=== PATIENT | male | born 1995 | race Two or more races ===

== ENCOUNTER 2017-09-08 14:14 | Emergency (ER) | payer OTHER ==
[~2017-09-08] VITALS: Ht 175.3 cm; Wt 61.2 kg
[2017-09-08] MEDS ORDERED: NKM (14:21)
[2017-09-08 14:28] VITALS: BP 119/58
[2017-09-08] MEDS ORDERED: Acetaminophen 500mg (ES) tab ORAL ONE (14:30)
[2017-09-08] MEDS ORDERED: Bacitracin Oint UD TOPIC ONE (14:30)
[2017-09-08] MEDS ORDERED: Tetanus/Diptheria/Pertussis Vaccine 0.5ml Syr IM ONE (14:30)
[2017-09-08] MEDS ORDERED: BACITRACIN-P28.35 GM TP (14:43)
--- NOTE | 2017-09-08 14:43 | Emergency Room Report ---
History of Present Illness General Chief Complaint: Laceration Source: Patient Present Illness HPI 22 yo male patient presents to ER for laceration on palm of left hand x1day. 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 Reports bleeding occurred at time of injury. Patient initially did not report to ER because had stopped bleeding; states was at work today when it began to bleed again and his boss sent him to ER. Denies loss of ROM, loss of sensation. Denies fever, chest pain, SOB. Patient is right hand dominate. Does not know tetanus vaccination status. Allergies: Coded Allergies: No Known Allergies (Unverified , 09/08/17) Patient History Past Medical History: see triage record Reviewed Nursing Documentation: PMH: Agreed, PSxH: Agreed Nursing Documentation-PMH Past Medical History: No Stated History Review of Systems All Other Systems: negative except mentioned in HPI Physical Exam Vital Signs Date Time Temp Pulse Resp B/P (MAP) Pulse Ox O2 Delivery O2 Flow Rate FiO2 09/08/17 14:18 97.9 82 16 119/58 98 Room Air 97.9 Sp02 EP Interpretation: reviewed, normal General Appearance: well appearing, no apparent distress, alert, GCS 15 Head: normocephalic, atraumatic Eyes: bilateral eye normal inspection, bilateral eye PERRL ENT: hearing grossly normal, normal pharynx, no angioedema, normal voice, uvula midline, moist mucus membranes Respiratory: lungs clear, normal breath sounds, no rhonchi, no respiratory distress, no accessory muscle use, no wheezing, speaking full sentences Cardiovascular #1: regular rate, rhythm, no edema Cardiovascular #2: 2+ radial (R), 2+ radial (L) Musculoskeletal: back normal, digits/nails normal, gait/station normal, normal range of motion, non-tender Neurologic: alert, oriented x3, responsive, motor strength/tone normal, sensory intact Psychiatric: mood/affect normal Skin: laceration - left hand palm: 2cm superifical laceration over hypothenar eminence, mild edema, no surrounding erythema, no signs of inefction, no active bleeding, no warmth to touch Medical Decision Making PA Attestation Dr. Nicholas is my supervising Physician whom patient management has been discussed with. Diagnostic Impression: Primary Impression: Laceration ER Course Pt presents to ED c/o laceration on left hand. DDX considered but are not limited to laceration, abrasion, contusion, cellulitis. No loss of ROM, does not require imaging. VITAL SIGNS are WNL, patient is afebrile ED INTERVENTIONS: Provided patient with TDAP and pain medication. Wound was cleaned and irrigated using normal saline. Steri strips used to approximate wound edges, does not require sutures at this time. Wound cleaned and covered using sterile dressing and Bacitracin. Hand wrapped to prevent excessive movement and disruption of steri strips. Keep wound clean and dry. Patient reports understanding and agreement to treatment plan. DISCHARGE: Rx provided for Bacitracin At this time pt is stable for d/c to home. Patient is resting comfortably, in no acute distress, nontoxic appearing, laughing and taking without difficulty. Will provide with patient care instructions and any necessary prescriptions. Patient to take medication as instructed. Care plan and follow-up instructions provided. Work note provided to patient. Patient questions asked and answered. Patient instructed to follow-up with primary care provider in 5-7 days for wound check. Patient instructed to followup with PCP to discuss further treatment plan. ER precautions given. Patient instructed to return to ER immediately for any new or worsening of symptoms including but not limited to loss of sensation of hand, swelling, fever. Last Vital Signs Date Time Temp Pulse Resp B/P (MAP) Pulse Ox O2 Delivery O2 Flow Rate FiO2 09/08/17 14:18 97.9 82 16 119/58 98 Room Air 97.9 Disposition: HOME, SELF-CARE Condition: Stable Scripts Bacitracin/Polymyxin B Sulfate (BACITRACIN-POLYMYXIN OINTMENT) 28.35 Gm Oint...g. 1 APPLIC TP BID for 7 Days, GM Prov: Holden Avila 09/08/17 Patient Instructions: Nonsutured Laceration Care Additional Instructions: Followup with primary care provider for wound check. Keep wound clean and dry. Take medications as directed. Patient questions asked and answered. ER precautions given, patient instructed to return to ER immediately for any new or worsening of symptoms. Holden Avila Sep 08, 2017 14:43
== END 2017-09-08 15:00 | disposition home or self-care (01) ==
LOC: EMR 14:50
DX: S61.412A Laceration without foreign body of left hand, initial encounter (principal); Z23 Encounter for immunization; W26.0XXA Contact with knife, initial encounter; Y93.G1 Activity, food preparation and clean up; Y92.511 Restaurant or cafe as the place of occurrence of the external cause; Y99.0 Civilian activity done for income or pay
CPT/HCPCS: 90471; 90715; 99284